=== PATIENT | male | born 1950 | race Caucasian/White ===

== ENCOUNTER → 2018-03-13 | Day surgery (SDC) | payer OTHER, MEDICARE ==
[~2018-03-13] VITALS: Ht 167.6 cm; Wt 86.2 kg
--- NOTE | 2018-03-13 10:35 | RADIOLOGY REPORT ---
EXAMINATION:\H\ \N\XR CHEST CLINICAL INFORMATION: Status post navigational bronchoscopy. COMPARISON: Chest x-ray dated 03/11/2018. CT scan of the chest dated 02/20/2018. TECHNIQUE: AP semierect view of the chest was obtained. FINDINGS: EKG leads overlie the chest. The cardiomediastinal silhouette is within normal limits in size. Right hilar mass is again seen, consistent with adenopathy. A large right mid lung mass is again seen. Lungs are otherwise unremarkable on plain film with the small pulmonary nodules seen on CT scan is not appreciated on plain film. No pneumothorax or effusion is seen. Bony structures are unremarkable. IMPRESSION: 1. No pneumothorax status post navigational bronchoscopy. 2. Right hilar adenopathy and right midlung mass again noted.
--- NOTE | 2018-03-13 14:09 | RADIOLOGY REPORT ---
EXAMINATION: FLUOROSCOPIC GUIDANCE FOR NAVIGATIONAL BRONCHOSCOPY CLINICAL INFORMATION: Right lung mass. COMPARISON: Chest radiograph earlier today. TECHNIQUE: 4.1 minutes of fluoroscopy was provided and 6 spot films are obtained. FINDINGS: Bronchoscope is seen along with a catheter extending out into the right mid lung lateral mass. IMPRESSION: Fluoroscopy provided for navigational bronchoscopy.
--- NOTE | 2018-03-13 16:21 | Operative Report ---
Operative/Inv Procedure Report Surgery Date: 03/13/18 Name of Procedure: Navigational bronchoscopy with fine-needle aspirate brushings forceps biopsy and bronchoalveolar lavage Pre-Operative Diagnosis: Right lung mass Post-Operative Diagnosis: Same Estimated Blood Loss: scant Surgeon/Leather Roller: Wan Acosta MD,Eleazar Mtz Anesthesia: general endotracheal tube Operative/Procedure Note Note: After placement of monitoring lines and induction of general anesthesia survey bronchoscopy was done. The endobronchial anatomy was normal. There were no mucosal lesions noted. The navigational system was then registered and the guider catheter was advanced into the posterior segment of the right upper lobe to the lesion. Brushings forceps biopsies and bronchoalveolar lavage were done and sent for permanent evaluation. The guider was then advanced to the hilar lymph node adjacent to the middle lobe bronchus and transbronchial needle aspiration biopsies were done through the guider catheter with a slight sent for permanent evaluation. There was good hemostasis. The patient tolerated procedure well was brought to recovery room awake in stable condition. CC: Abhijeet SNELL,Bautista Judge; Latoya SNELL,Christie Hobbs
== END ==
LOC: STS 02:43
DX: R91.8 Other nonspecific abnormal finding of lung field (principal); R91.1 Solitary pulmonary nodule; Z85.528 Personal history of other malignant neoplasm of kidney; I10 Essential (primary) hypertension; M19.90 Unspecified osteoarthritis, unspecified site; Z79.82 Long term (current) use of aspirin
CPT/HCPCS: 87070; 87075; 87205; 71045; 76000; 88305; J2250; J3490